=== PATIENT | male | born 1965 | race African-American/Black ===

== ENCOUNTER 2024-04-01 07:45 | Emergency (ER) | payer OTHER, SELFPAY ==
--- NOTE | ~2024-04-01 | CT_ITS ---
CT Facial Bones Clinical Indication: Right-sided facial swelling Technique: Following intravenous administration of 75 cc of Omnipaque 350 contrast material, axial sc ans were obtained through the facial bones followed by coronal and sagittal reconstructions. Dose red uction technique was used on this scan by utilizing automated exposure control and iterative reconstr uction technique. The dose-length product (DLP) was 441.10 mGy-cm. Findings: No fractures are identified. There is complete opacification of the right maxillary sinus w ith probable chronic sinusitis. There is additional extensive mucosal thickening in the right ethmoid air cells, and to a lesser extent left ethmoid air cells. Remaining paranasal sinuses and mastoid ai r cells are clear. Intraorbital soft tissues appear normal. There is extensive soft tissue edema/swelling involving the right superficial soft tissues over the r ight maxillary region and right mandibular region. No definite fluid collection/abscess identified. E rosive changes at the posterior aspect of the maxilla bilaterally is probably related to periodontal disease. Impression: Extensive soft tissue swelling the right side of the face, which could reflect cellulitis or other no nspecific edema. No definite abscess seen. Predominantly right-sided sinus disease, as above. Erosive changes of the maxilla probably represent periodontal disease. Reviewed, dictated and finalized at location . Impression: Extensive soft tissue swelling the right side of the face, which could reflect cellulitis or other nonspecific edema. No definite abscess seen. Predominantly right-sided sinus disease, as above. Erosive changes of the maxilla probably represent periodontal disease.
[2024-04-01 07:48] VITALS: BP 142/77; PULSE 104; RESP 20; TEMP 36.6; O2SAT 100
[2024-04-01] MEDS: SODIUM CHLORIDE 0.9% IV 1,000 ML 999 ML IV CONT (09:10)
[2024-04-01] MEDS: KETOROLAC 15 MG/ML VIAL (*BKC) IV PUSH (09:11)
[2024-04-01] MEDS: CLINDAMYCIN 600 MG/D5W 50 ML 600 MG/50 ML PIGGYBACK 100 MG IVPB (09:11)
[2024-04-01 09:18] LABS: Basophils Absolute Auto 0.1 K/mm3 (0.0-0.1); Basophils Percent Auto 1.1 % (0.2-1.2); Eosinophils Absolute Auto 0.1 K/mm3 (0-0.3); Eosinophils Percent Auto 1.5 % (0-4.4); Hematocrit 41.2 % (42.0-52.0); Hemoglobin 14.1 g/dL (14.0-18.0); Immature Granulocyte Absolute 0.02 K/mm3 (0.00-0.031); Immature Granulocyte Percent A 0.2 % (0-0.5); Lymphocytes Absolute Auto 2.25 K/mm3 (0.9-3.2); Lymphocytes Percent Auto 27.5 % (18.3-44.2); Mean Corpuscular HGB Conc 34.2 g/dl (32-36); Mean Corpuscular Hemoglobin 31.9 pg (26-34); Mean Corpuscular Volume 93.2 fl (80-100); Mean Platelet Volume 8.4 fl (7.4-10.4); Monocytes Absolute Auto 0.7 K/mm3 (0.1-0.6); Monocytes Percent Auto 8.7 % (2.6-8.5); Platelet Count Result 334 k/mm3 (150-375); Red Blood Count 4.42 M/mm3 (4.6-6.20); Red Cell Distribution Width 13.6 % (11.5-14.5); White Blood Count 8.2 K/mm3 (4.5-10.0)
[2024-04-01 09:31] LABS: Alanine Aminotransferase 19 U/L (6-50); Albumin Level 4.1 g/dL (3.5-5.1); Alkaline Phosphatase 59 U/L (38-126); Anion Gap 8 mmol/L (4-12); Aspartate Amino Transferase 26 U/L (17-59); Bilirubin,Total 0.3 mg/dL (0.2-1.3); Blood Urea Nitrogen 14 mg/dL (9-20); Calcium 9.2 mg/dL (8.4-10.2); Carbon Dioxide 26 mmol/L (22-30); Chloride 108 mmol/L (98-107); Estimated CRCL calculation 92 ml/min; Estimated Glomerular Filt Rate > 60; Glucose 92 mg/dL (65-110); Lactic Acid Reflex 0.8 mmol/L (0.7-2.0); Potassium 3.9 mmol/L (3.4-5.0); Sodium 142 mmol/L (137-145)
--- NOTE | 2024-04-01 10:18 | ED.GENADULT ---
HPI - General Adult General Chief complaint: Dental/Oral Stated complaint: right upper jaw swelling Time Seen by Provider: 04/01/24 08:54 History of Present Illness HPI narrative: Patient is a 58-year-old gentleman who presents emergency department with chief complaint of right-sided mandible pain patient reports that he been having some dental pain reports that he saw his dentist had a cleaning done and was started on amoxicillin. Patient reports that he has had worsening swelling in his mouth and reports that it has become exquisitely painful. Related Data Allergies Allergy/AdvReac Type Severity Reaction Status Date / Time No Known Allergies Allergy Mild Verified 04/01/24 07:51 Review of Systems Review of Systems: A 10 system review of systems was completed on the patient and is negative except for what is stated in the HPI. Nursing and ancillary documentation was reviewed. Exam Narrative: GENERAL: Well-appearing, well-nourished, and in no acute distress. HEAD: Normocephalic, atraumatic. EYES: PERRLA and EOMI. ENT: Nares clear, no rhinorrhea or epistaxis. Mucous membranes moist. There is swelling inside of the mouth there is no appreciable abscess there is swelling and gums right maxilla NECK: Supple. CHEST: Clear to auscultation. No respiratory distress. HEART: Regular rate and rhythm. No murmur heard. Normal peripheral pulses. ABDOMEN: Soft, nontender, nondistended, normal active bowel sounds. EXTREMITIES: Normal range of motion. No edema. SKIN: Warm, dry, no rash. NEURO: No focal deficits. Alert and oriented x3. PSYCH: Normal mood and affect. Course Vital Signs Vital signs: Vital Signs Temperature 36.6 C 04/01/24 07:48 Pulse Rate 104 H 04/01/24 07:48 Respiratory Rate 04/01/24 07:48 Blood Pressure 142/77 H 04/01/24 07:48 Pulse Oximetry 100 04/01/24 07:48 Oxygen Delivery Room Air 04/01/24 07:48 Temperature 36.6 C 04/01/24 07:48 Pulse Rate 104 H 04/01/24 07:48 Respiratory Rate 20 04/01/24 07:48 Blood Pressure 142/77 H 04/01/24 07:48 Pulse Oximetry 100 04/01/24 07:48 Oxygen Delivery Room Air 04/01/24 07:48 Medical Decision Making [facility] Narrative Medical decision making narrative: Differential diagnosis includes abscess, cellulitis, sialadenitis Laboratory studies were obtained which showed a white count of 8.2 electrolytes are within normal limits lactate was 0.8 CT scan of the facial bones with IV contrast showed xtensive soft tissue swelling the right side of the face, which could reflect cellulitis or other nonspecific edema. No definite abscess seen. Predominantly right-sided sinus disease, as above. Erosive changes of the maxilla probably represent periodontal disease. The patient's Amoxil be changed to clindamycin and the patient will be discharged home to follow-up with his dentist. Vital Signs Vital Signs: Vital Signs Temperature 36.6 C 04/01/24 07:48 Pulse Rate 104 H 04/01/24 07:48 Respiratory Rate 20 04/01/24 07:48 Blood Pressure 142/77 H 04/01/24 07:48 Pulse Oximetry 100 04/01/24 07:48 Oxygen Delivery Room Air 04/01/24 07:48 Temperature 36.6 C 04/01/24 07:48 Pulse Rate 104 H 04/01/24 07:48 Respiratory Rate 20 04/01/24 07:48 Blood Pressure 142/77 H 04/01/24 07:48 Pulse Oximetry 100 04/01/24 07:48 Oxygen Delivery Room Air 04/01/24 07:48 Lab Data 04/01/24 09:14 04/01/24 09:14 Labs: Lab Results 04/01/24 Range/Units 09:14 WBC 8.2 (4.5-10.0) K/mm3 RBC 4.42 L (4.6-6.20) M/mm3 Hgb 14.1 (14.0-18.0) g/dL Hct 41.2 L (42.0-52.0) % MCV 93.2 (80-100) fl MCH 31.9 (26-34) pg MCHC 34.2 (32-36) g/dl RDW 13.6 (11.5-14.5) % Plt Count 334 (150-375) k/mm3 MPV 8.4 (7.4-10.4) fl Immature Gran % (Auto) 0.2 (0-0.5) % Neut % (Auto) 61.0 (45.5-73.1) % Lymph % (Auto) 27.5 (18.3-44.2) % [place] % (Auto) 8.7 H (2.6-8.5) %
== END 2024-04-01 10:32 | disposition home or self-care (01) ==
PROVIDERS: Emergency Provider Emergency Medicine; PCP Family Medicine
DX: K04.7 Periapical abscess without sinus (principal)
CPT/HCPCS: 36415; 70487; 80053; 83605; 85025; 96361; 96365; 96375; 99284; J1885; J7030; Q9967

== ENCOUNTER 2024-06-05 15:28 | Emergency (ER) | payer OTHER, SELFPAY ==
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
[2024-06-05 15:29] VITALS: BP 154/79; PULSE 108; RESP 16; TEMP 36.6; O2SAT 100
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
[2024-06-05] MEDS: NAPROXEN 500 MG TABLET PO (17:07)
[2024-06-05] MEDS: CYCLOBENZAPRINE HCL 10 MG TABLET PO (17:07)
[2024-06-05 17:11] VITALS: BP 123/67; PULSE 81; RESP 15; O2SAT 100
== END 2024-06-05 17:12 | disposition home or self-care (01) ==
LOC: ANHED 16:54
PROVIDERS: Emergency Provider Emergency Medicine; PCP Family Medicine
DX: M54.2 Cervicalgia (principal); M54.9 Dorsalgia, unspecified; K08.89 Other specified disorders of teeth and supporting structures; M79.662 Pain in left lower leg; V43.52XA Car driver injured in collision with other type car in traffic accident, initial encounter
CPT/HCPCS: 72125; 72131; 73590; 99284; A9270